=== PATIENT | female | born 1970 | race American Indian/Alaskan Native ===

== ENCOUNTER 2020-05-26 00:56 | Outpatient (CLI) | payer MEDICAID | END 2020-05-26 00:57 | disposition critical access hospital (66) | LOC: EMS 00:56 | PROVIDERS: ATTEND Emergency Medicine | DX: Z04.89 Encounter for examination and observation for other specified reasons (principal) | CPT/HCPCS: A0425; A0429; A0999 ==

== ENCOUNTER 2020-05-26 01:38 | Emergency (ER) | payer MEDICAID ==
[2020-05-26 02:04] LABS: MUDS CUTOFF CONCENTRATIONS CUTOFF CONC BELOW:
[2020-05-26 02:05] LABS: BASOPHILS # (AUTO) 0.1 10^3/uL (0.0-0.1); BASOPHILS % (AUTO) 1.5 %; EOSINOPHILS # (AUTO) 0.7 10^3/uL (0.0-0.7); EOSINOPHILS % (AUTO) 8.5 %; HCT - HEMATOCRIT 41.9 % (37.0-47.0); HGB - HEMOGLOBIN 13.9 g/dL (12.0-16.0); LYMPHOCYTES # (AUTO) 4.1 10^3/uL (1.5-3.5); LYMPHOCYTES % (AUTO) 51.7 %; MEAN CORPUSCULAR HGB CONC 33.2 g/dL (32.0-36.0); MEAN CORPUSCULAR VOLUME 99.5 fL (81.0-99.0); MEAN PLATELET VOLUME 8.3 fL (7.9-10.8); MONOCYTES # (AUTO) 0.8 10^3/uL (0.0-1.0); MONOCYTES % (AUTO) 10.1 %; NEUTROPHILS # (AUTO) 2.2 10^3/uL (1.5-6.6); NEUTROPHILS % (AUTO) 28.1 %; PLT - PLATELET COUNT 407 10^3/uL (130-450); RED BLOOD COUNT 4.21 10^6/uL (4.20-5.40); WHITE BLOOD COUNT 7.9 x10^3/uL (4.8-10.8)
[2020-05-26 02:17] LABS: AMPHETAMINE SCREEN,URINE NEGATIVE (NEGATIVE); BENZODIAZEPINES SCREEN, URINE NEGATIVE (NEGATIVE); COCAINE SCREEN URINE NEGATIVE (NEGATIVE); METHADONE SCREEN, URINE NEGATIVE (NEGATIVE); METHAMPHETAMINES SCREEN, URINE NEGATIVE (NEGATIVE); OPIATE SCREEN, URINE NEGATIVE (NEGATIVE); THC CANNABINOID SCREEN, URINE POSITIVE (NEGATIVE); TRICYCLIC ANTIDEPRESSANT,URINE NEGATIVE (NEGATIVE)
[2020-05-26 02:18] LABS: BARBITURATE SCREEN,UR NEGATIVE (NEGATIVE); OXYCODONE SCREEN, URINE NEGATIVE (NEGATIVE); PROPOXYPHENE SCREEN, URINE NEGATIVE (NEGATIVE)
[2020-05-26 02:23] LABS: ACETAMINOPHEN < 10 ug/mL (10-30); ALBUMIN 3.4 g/dL (3.2-5.5); ALBUMIN/GLOBULIN RATIO 0.7 (1.0-2.2); ALKALINE PHOSPHATASE 143 IU/L (42-121); ALT ALANINE AMINOTRANSFERASE 51 IU/L (10-60); AST ASPARTATE AMINOTRANSFERASE 122 IU/L (10-42); BILIRUBIN,TOTAL 0.8 mg/dL (0.2-1.0); BUN - BLOOD UREA NITROGEN 5 mg/dL (6-20); CALCIUM 9.1 mg/dL (8.5-10.3); CARBON DIOXIDE - CO2 30 mmol/L (21-32); CHLORIDE 102 mmol/L (101-111); CREATININE 0.6 mg/dL (0.4-1.0); ETOH - ETHANOL 237.3 mg/dL; GFR - MDRD 105 (>89); GLUCOSE 98 mg/dL (70-100); LIPASE 28 U/L (22-51); POTASSIUM 4.3 mmol/L (3.5-5.0); SALICYLATE < 6.0 mg/dL; SODIUM 142 mmol/L (135-145); TOTAL PROTEIN 8.2 g/dL (6.7-8.2)
--- NOTE | 2020-05-26 03:15 | ED Physician Documentation ---
PD HPI MHE - Stated complaint Stated Complaint: SI - Chief complaint Chief Complaint: MHE - History obtained from History obtained from: Patient, Family - History of Present Illness Primary symptom: Suicidal ideation Timing - onset: How many weeks ago (1) Contributing factors: Family, Substance abuse - ETOH Similar symptoms before: Diagnosis (SI) Recently seen: Not recently seen - Additional information Additional information: 50-year-old female with a history of depression and hypertension is visiting [facility] staying at the cabin of there [place]. She was with some friends and her daughter and she had been drinking today. The daughter noted the patient has been depressed relating to deaths in the family. She has lost her brother to a motorcycle accident a sister to a fentanyl overdose and another sister last week of bone cancer. The patient has made multiple statements including she wishes she were the one that had and statements that she wanted to have an overdose by putting multiple fentanyl patches on and she told both her ex- and her daughter that she had taken sleeping pills. She has been drinking today and is intoxicated. The patient herself gives a history that she really just wants to go back home and does not feel suicidal in any way. She states she has 5 children and 9 grandchildren and she does not feel suicidal. History taken from the daughter and by phone from the daughter sister indicate that the patient has "ramped up" her suicidality in the past week and the family became concerned when the patient was talking to her x- and made statements about suicidality and when she began talking to herself the daughter called 911 at the insistence of the x-. The [facility] went the patients cabin and have provided an avidavit with detainment for psychiatric evaluation. Review of Systems Unable to obtain: Intoxicated Constitutional: denies: Fever Eyes: denies: Decreased vision Ears: denies: Ear pain Nose: denies: Congestion Throat: denies: Sore throat Cardiac: denies: Chest pain / pressure, Palpitations Respiratory: denies: Dyspnea, Cough GI: denies: Nausea, Vomiting, Constipation, Diarrhea : denies: Dysuria, Frequency Skin: denies: Rash Musculoskeletal: denies: Neck pain, Back pain, Extremity pain Neurologic: denies: Generalized weakness, Focal weakness, Numbness Psychiatric: reports: Depressed PD PAST MEDICAL HISTORY - Present Medications Home Medications: Ambulatory Orders Medication Instructions Recorded Confirmed Fluoxetine HCl [Prozac] 20 mg PO DAILY 05/26/20 05/26/20 Losartan [Cozaar] 25 mg PO DAILY 05/26/20 05/26/20 - Allergies Allergies/Adverse Reactions: Allergies Allergy/AdvReac Type Severity Reaction Status Date / Time codeine Allergy Hives Verified 05/26/20 01:48 PD ED PE NORMAL - Vitals Vital signs reviewed: Yes (Hypertensive) - General General: Alert and oriented X 3, Well developed/nourished, Other (The patient is animated and talkative appears intoxicated and insist on going home.) - HEENT HEENT: Atraumatic, PERRL, EOMI - Neck Neck: Supple, no meningeal sign, No bony TTP - Cardiac Cardiac: RRR, No murmur - Respiratory Respiratory: No respiratory distress, Clear bilaterally - Abdomen Abdomen: Soft, Non tender - Back Back: No CVA TTP, No spinal TTP - Derm Derm: Normal color, Warm and dry, No rash - Extremities Extremities: No deformity, No edema - Neuro Neuro: Alert and oriented X 3, parts fabricator 2-12 intact, No motor deficit, No sensory deficit, Normal speech Eye Opening: Spontaneous Motor: Obeys Commands Verbal: Oriented GCS Score: 15 - Psych Psych: Normal mood, Normal affect Results - Vitals Vitals: Vital Signs - 24 hr 05/26/20 01:43 Temperature 36.4 C L Heart Rate 78 Respiratory 18 Rate Blood Pressure 136/92 H O2 Saturation 97 Oxygen O2 Source Room air - Labs Labs: Laboratory Tests 05/26/20 05/26/20 05/26/20 01:55 02:00 02:00 WBC 7.9 RBC 4.21 Hgb 13.9 Hct 41.9 MCV 99.5 H MCH 33.0 H MCHC 33.2 RDW 13.0 Plt Count 407 MPV 8.3 Neut # (Auto) 2.2 Lymph # (Auto) 4.1 H Lawrence # (Auto) 0.8 Eos # (Auto) 0.7 Baso # (Auto) 0.1 Absolute Nucleated RBC 0.00 Nucleated RBC % 0.0 Sodium 142 Potassium 4.3 Chloride 102 Carbon Dioxide 30 Anion Gap 10.0 BUN 5 L Creatinine 0.6 Estimated GFR (MDRD) 105 Glucose 98 Calcium 9.1 Total Bilirubin 0.8 AST 122 H ALT 51 Alkaline Phosphatase 143 H Total Protein 8.2 Albumin 3.4 Globulin 4.8 H Albumin/Globulin Ratio 0.7 L Lipase 28 Salicylates < 6.0 Urine Opiates Screen NEGATIVE Ur Oxycodone Screen NEGATIVE Urine Methadone Screen NEGATIVE Ur Propoxyphene Screen NEGATIVE Acetaminophen < 10 L Ur Barbiturates Screen NEGATIVE Ur Tricyclics Screen NEGATIVE Ur Phencyclidine Scrn NEGATIVE Ur Amphetamine Screen NEGATIVE U Methamphetamines Scrn NEGATIVE U Benzodiazepines Scrn NEGATIVE Urine Cocaine Screen NEGATIVE U Cannabinoids Screen POSITIVE H Ethyl Alcohol 237.3 PD MEDICAL DECISION MAKING - ED course Complexity details: reviewed results, re-evaluated patient, considered differential, d/w patient, d/w family ED course: 50-year-old female with a history of depression presents to the emergency department intoxicated on alcohol with a story that she may have taken an overdose of melatonin. This does not appear to be the case. The patient appears animated and wants to go home. She apparently has made multiple statements indicating her suicidal nature during a time of high stress, her sister has just , she has moved in with her parents in their home in [facility] after her mother suffered a stroke and broke her hip, another sister has dies of a fentanyl overdose and a brother of a motorcycle accident. She states she drank 4 23 ounce [place] hard lemonades today and her blood alcohol clearly demonstrates more alcohol consumption. She will need to sober for a safety contract and we have consulted the social service liaison for some help.
[2020-05-26] MEDS ORDERED: LORazepam 1 MG TABLET PO STA ×2 (03:28→14:50)
[2020-05-26 12:52] LABS: B. PARAPERTUSSIS- RESP PCR PAN NOT DETECTED; B. PERTUSSIS- RESP PCR PANEL NOT DETECTED; C. PNEUMONIAE- RESP PCR PANEL NOT DETECTED; CORONAVIRUS 229E-RESP PCR NOT DETECTED; CORONAVIRUS HKU1-RESP PCR NOT DETECTED; CORONAVIRUS NL63-RESP PCR NOT DETECTED; CORONAVIRUS OC43-RESP PCR NOT DETECTED; HUMAN METAPNEUMOVIRUS NOT DETECTED; INFLUENZA A- RESP PCR PANEL NOT DETECTED; INFLUENZA B - RESP PCR PANEL NOT DETECTED; M. PNEUMONIAE- RESP PCR PANEL NOT DETECTED; PARAINFLUENZA VIRUS 1 NOT DETECTED; PARAINFLUENZA VIRUS 2 NOT DETECTED; PARAINFLUENZA VIRUS 3 NOT DETECTED; PARAINFLUENZA VIRUS 4 NOT DETECTED; RHINOVIRUS/ENTEROVIRUS NOT DETECTED; RSV- RESP PCR PANEL NOT DETECTED; SARS-CoV-2 -RESP PCR PANEL NOT DETECTED
[2020-05-26] MEDS ORDERED: FLUoxetine 10 MG CAPSULE PO SCH (15:00)
[2020-05-26 15:18] VITALS: BP 140/95
--- NOTE | 2020-05-26 16:38 | ED Physician Documentation ---
ED Addendum - Addendum Addendum: 05/26/20 16:36 Patient was signed out to me at change of shift, pending social work evaluation after presenting to the emergency department with alcohol intoxication and suicidal ideation. tradeshow worker did evaluate the patient and also spoke with concern family members who reported that patient had been escalating in her alcohol abuse and in her is suicidal thoughts. They stated that she recently had given her a daughter a list of the pens for all of her credit and debit cards, as well as her passwords. tradeshow worker was very concerned about this revelation and felt that the patient should be evaluated by the DCR involuntarily. The patient was clinically sober and alcohol level had returned to less than 0.08 at this time. The patient was ultimately found an inpatient bed in [place], and was agreeable to going. She was given a dose of Ativan during my shift after complaining of feeling anxious. She was also given a dose of Prozac at her usual 40 mg.
--- NOTE | 2020-05-26 17:27 | ED Physician Documentation ---
ED Addendum - Addendum Addendum: 05/26/20 17:27 Diagnosis: 1. Alcohol intoxication 2. Suicidal ideation Disposition: Transfer to psychiatric facility Condition: Stable
[2020-05-27] MEDS ORDERED: FLUoxetine 10 MG CAPSULE PO SCH (09:00)
== END 2020-05-26 19:11 ==
LOC: ED 01:38
DX: F32.9 Major depressive disorder, single episode, unspecified (principal); R45.851 Suicidal ideations; F10.129 Alcohol abuse with intoxication, unspecified; F41.9 Anxiety disorder, unspecified; I10 Essential (primary) hypertension; Z20.822 Contact with and (suspected) exposure to COVID-19
CPT/HCPCS: 0202U; 36415; 80053; 80306; 80307; 80320; 80329; 83690; 85025; 99283; 99285; A9270; J8499